=== PATIENT | female | born 1990 | race Caucasian/White ===

== ENCOUNTER 2016-09-01 20:57 | Inpatient (IN) | payer OTHER ==
[2016-09-01] MEDS ORDERED: LIDOCAINE HCL 50 ML VIAL PERI PRN (21:42)
[2016-09-01] MEDS ORDERED: RINGER'S SOLUTION,LACTATED 1,000 ML IV ONE ×2 (21:42→22:16)
[2016-09-01] MEDS ORDERED: OXYTOCIN/DEXTROSE 5%-WATER 30 UNITS/500 ML BAG IV ONE (21:42)
[2016-09-01 22:00] LABS: Hematocrit 27.8 % (37.0-47.0); Hemoglobin 9.5 gm/dL (12.5-16.0); Mean Cell Volume 85.8 fl (78-100); Mean Corpuscular Hemoglobin 29.3 pg (27-31); Mean Corpuscular Hgb Conc 34.2 g/dl (32-36); Mean Platelet Volume 9.4 fl (6.0-9.5); Neutrophil # 18.3 K/mm3 (1.3-6.0); Neutrophil % 83.3 % (42-75.0); Platelet Count 213 K/mm3 (150-450); Red Blood Count 3.24 M/mm3 (4.2-5.4); Red Cell Distribution Width 12.5 % (11.5-14.0); White Blood Count 21.9 K/mm3 (4.0-10.5)
--- NOTE | 2016-09-01 23:09 | PN ---
Subjective - Date and Time Seen Date: 09/01/16 Subjective Narrative: labor note: 26 yo, at 37.6 weeks, admitted with SROM in labor. has been ruptured for about 18 hours since 8 am this morning. dilated to 3 cm, 50% and -2 at admission. GBS negative. Patient has persistent tachycardia in the 120s. Her white count was significantly elevated to 21.9 with 90% of granulocyte and absolute neutrophils count of 18.3. heart rate was initially in the 150s and now in the 135s with minimal variability and some accels. All of the above suggested that she is having an infection and likely developing chorioamnionitis. Plan: will cover for possible chorioamnionitis with gentamicin (5mg/kg iv q24 h ) and clindamycin (900 mg iv q8h). pitocin augmentation as needed. Nelson Jaimes MD Objective - Vitals Vitals: Last Vital Signs Temp 36.2 C L 01/23/16 15:27 Pulse Resp BP 133/74 01/23/16 15:27 Pulse Ox - Abnormal Lab Findings Abnormal Lab Findings: Abnormal Lab Results 09/01/16 Range/Units 22:00 WBC 21.9 H (4.0-10.5) K/mm3 RBC 3.24 L (4.2-5.4) M/mm3 Hgb 9.5 L (12.5-16.0) gm/dL Hct 27.8 L (37.0-47.0) % Immature Gran % (Auto) 0.90 H (0.001-0.429) % Immature Gran # (Auto) 0.20 H (0.000-0.0310) K/mm3 Neutrophils % 83.3 H (42-75.0) % Lymphocytes % 10.1 L (20-51) % Neutrophils # 18.3 H (1.3-6.0) K/mm3 Monocytes # 1.1 H (0.0-1.0) k/mm3
[2016-09-01] MEDS: RINGER'S SOLUTION,LACTATED 1,000 ML IV PRN (23:11)
[2016-09-02] MEDS: CLINDAMYCIN PHOSPHATE 900 MG in DEXTROSE 5 % IN WATER 100 ML IV SCH ×6 (00:13→16:33)
[2016-09-02] MEDS ORDERED: GENTAMICIN SULFATE 400 MG in DEXTROSE 5 % IN WATER 100 ML IV SCH ×2 (01:00)
[2016-09-02] MEDS ORDERED: NALOXONE HCL 1 MG/1 ML SYRG IV PRN ×2 (01:32→02:31)
[2016-09-02] MEDS ORDERED: ONDANSETRON HCL/PF 2 MG/ML VIAL IV PRN ×2 (01:32→02:31)
[2016-09-02] MEDS ORDERED: BUPIVACAINE HCL/0.9 % NACL/PF 250 ML EP PRN ×2 (01:32→02:31)
[2016-09-02] MEDS ORDERED: fentaNYL CITRATE/PF 50 MCG/ML AMPUL IT SCH ×2 (01:45→02:45)
--- NOTE | 2016-09-02 02:01 | OR ---
Anesthesia Pre Procedure Eval Date of Service: 09/02/16 Pre Procedure Evaluation: Last Vital Signs Temp 36.2 C L 01/23/16 15:27 Pulse Resp BP 133/74 01/23/16 15:27 Pulse Ox Anesthesia Pre Procedure Evaluation Heart Rate: 100 Blood Pressure: 114/64 Termperature: 99 Respiratory Rate: 18 SaO2: 36.9 DATE: 09/02/2016 TIME: 2 AM INDICATIONS: Active labor, labor pain PAST MEDICAL HISTORY: Multiple patient in active labor EXAM: Heart regular; lungs clear ASSESSMENT OF MEDICAL STATUS: Appropriate candidate for labor analgesia PLANNED PROCEDURE: Combination spinal epidural for labor analgesia Home Medications: HOME MEDICATIONS Vit No.78/Iron/FA [Prenatabs FA Tablet] 1 each PO DAILY 01/23/16 [Last Taken Unknown]
--- NOTE | 2016-09-02 02:28 | OR ---
Anesthesia Procedure Note - Anesthesia Procedure Note Date of Service: 09/02/16 Narrative: Vital Signs - Last Taken Temp 36.2 C L 01/23/16 15:27 Pulse Resp BP 133/74 01/23/16 15:27 Pulse Ox 09/02/16 02:23 ANESTHESIA PROCEDURE NOTE Date of Procedure: 09/02/2016 Time of procedure: 2:00 AM. Performed by: SHEN Sainz CRNA, MSN Tube Filler: Radha Arroyo RN. Preprocedure diagnosis: Active labor, labor pain. Post procedure diagnosis: Same. Procedure:Epidural for labor analgesia at L4 5. Indications: Labor pain. Findings: See below. Details of the procedure: The patient was placed on the side of the bed in sitting positionand prepped with DuraPrep then draped in a sterile fashion. Lidocaine 1% was infiltrated to the skin and subcutaneous tissues at the level of the L4 5 interspace. An 18-gauge Touhy needle was used to approach the epidural space with loss of resistance technique. Once loss of resistance was achieved a 24-gauge Pencan needle was passed through the epidural needle and CSF was contacted. After CSF returned fentanyl 20 mcg of fentanyl was injected in the spinal needle was removed the epidural catheter was then threaded approximately 4 cm in the epidural needle was removed. The catheter was taped in place and after careful aspiration 3 mL of 1.5% lidocaine with 1-200,000 epinephrine was injected without change in maternal heart rate or sensorium. . EBL: Minimal. Fluids: N/A. Specimen: N/A. Post procedure condition: The patient tolerated the procedure well with good relief. No complications were noted. Thank you for this consultation. Stanford Larios CRNA, SHEN, MSN
[2016-09-02 08:56] LABS: Hematocrit 27.4 % (37.0-47.0); Hemoglobin 9.2 gm/dL (12.5-16.0); Mean Corpuscular Hemoglobin 29.2 pg (27-31); Mean Corpuscular Hgb Conc 33.6 g/dl (32-36); Mean Platelet Volume 9.7 fl (6.0-9.5); Neutrophil % 84.9 % (42-75.0); Platelet Count 207 K/mm3 (150-450); Red Blood Count 3.15 M/mm3 (4.2-5.4); Red Cell Distribution Width 12.9 % (11.5-14.0); White Blood Count 22.4 K/mm3 (4.0-10.5)
[2016-09-02 09:10] LABS: Albumin * 2.4 gm/dl (3.4-5.0); Anion Gap 11.1 mmol/L (6.8-13.8); BUN/Creatinine Ratio 6.3 (9.0-21.6); Bilirubin, Total 0.4 mg/dL (0.0-1.1); Ca. Corrected For Albumin 9.2 mg/dL (8.4-10.2); Calcium * 8.2 mg/dL (7.9-10.9); Carbon Dioxide 24.3 mmol/L (24-32.6); Potassium 3.4 mmol/L (3.4-4.6)
--- NOTE | 2016-09-02 09:14 | PN ---
Progess Note - Interim Narrative: 09/02/16 09:12 Subjective-on the right side and complains of a window pain Objective- SVE- deferred FHTs- 145, moderate variability, positive accelerations, no decelerations [place]- maybe every 2 minutes Assessment and plan- Labor-augmentation Suspected chorio- continue antibiotics GBS status-negative Continue current plan of care.
[2016-09-02] MEDS ORDERED: AMPICILLIN SODIUM 2,000 MG in NORMAL SALINE 100 ML IV SCH (10:00)
[2016-09-02] MEDS ORDERED: ACETAMINOPHEN 500 MG TABLET PO PRN (10:02)
[2016-09-02] MEDS: RINGER'S SOLUTION,LACTATED 1,000 ML IV PRN (10:12)
--- NOTE | 2016-09-02 12:37 | OR ---
Operative Report - Dictated Report Narrative: Spontaneous Vaginal Delivery Viable female with APGARS of 8 at 1 and 8 at 5 minutes. Presentation was direct OA. The right anterior shoulder delivered with gentle downward traction followed by the posterior shoulder and the remainder of the baby. Spontaneous cry was noted and was placed on the maternal abdomen. The cord was then clamped and cut after approximately 60 seconds. Delivery was 1206. Weight: 3498 g or 7 pounds 11 point Placenta was delivered spontaneously and intact. Second-degree midline laceration was noted and repaired with 2-0 Vicryl. Estimated blood loss: 300 ml Mother and baby tolerated delivery well. History for Definition: * The number of deliveries resulting in a live the patient experienced prior to current hospitalization * The previous delivery of live twins or any live multiple gestation is considered one live event. *If primagravida or nulliparous is documented select zero for the number of previous live births. Live Events: 1
[2016-09-02] MEDS ORDERED: BISACODYL 10 MG SUPP.RECT RC PRN (13:43)
[2016-09-02] MEDS ORDERED: GLYCERIN/WITCH HAZEL LEAF 40 APPL BOX TP PRN (13:43)
[2016-09-02] MEDS ORDERED: IBUPROFEN 800 MG TABLET PO PRN (13:43)
[2016-09-02] MEDS ORDERED: OXYTOCIN/DEXTROSE 5%-WATER 30 UNITS/500 ML BAG IV ONE (13:43)
[2016-09-02] MEDS ORDERED: HYDROCORTISONE 30 APPL TUBE TP PRN (13:43)
[2016-09-02] MEDS ORDERED: oxyCODONE HCL/ACETAMINOPHEN 1 TAB TABLET PO PRN ×2 (13:43)
[2016-09-02] MEDS ORDERED: SENNOSIDES 8.6 MG TABLET PO PRN (13:43)
[2016-09-02] MEDS ORDERED: BENZOCAINE/MENTHOL 81 SPRAY CAN TP PRN (13:43)
[2016-09-02] MEDS: AMPICILLIN SODIUM 2,000 MG in NORMAL SALINE 100 ML IV SCH ×2 (17:27→21:04)
[2016-09-02] MEDS: DOCUSATE SODIUM 100 MG CAPSULE PO SCH (21:05)
[2016-09-03] MEDS ORDERED: GENTAMICIN SULFATE 400 MG in DEXTROSE 5 % IN WATER 100 ML IV SCH ×2 (01:00)
[2016-09-03] MEDS: CLINDAMYCIN PHOSPHATE 900 MG in DEXTROSE 5 % IN WATER 100 ML IV SCH ×2 (01:27)
[2016-09-03] MEDS: AMPICILLIN SODIUM 2,000 MG in NORMAL SALINE 100 ML IV SCH (04:24)
[2016-09-03] MEDS: DOCUSATE SODIUM 100 MG CAPSULE PO SCH ×2 (08:43→20:34)
[2016-09-03] MEDS: ENOXAPARIN SODIUM 40 MG/0.4 ML SYRG SC SCH (08:43)
[2016-09-03] MEDS ORDERED: PRENATAL VITS96/IRON FUM/FOLIC 1 TAB TABLET PO SCH (09:00)
--- NOTE | 2016-09-03 09:11 | PN ---
Progess Note - Interim Narrative: 09/03/16 09:10 progress note Subjective: The patient is doing well. She is ambulating, voiding, tolerating by mouth. She has minimal pain and moderate lochia. Objective: General: No acute distress Abdomen: Soft, nontender, fundus is firm just below the umbilicus Extremities: minimal edema, nontender to palpation Assessment and plan: day 1 Feeding: Breast Pain: Controlled with by mouth medication control: Mirena Chorioamnionitis: Afebrile pain 24 hours will discontinue antibiotics heterozygous for factor V Leiden with family history of blood clots: Daily Lovenox Routine care.
[2016-09-04 07:23] VITALS: BP 116/76
[2016-09-04] MEDS: DOCUSATE SODIUM 100 MG CAPSULE PO SCH (08:22)
[2016-09-04] MEDS: ENOXAPARIN SODIUM 40 MG/0.4 ML SYRG SC SCH (08:22)
--- NOTE | 2016-09-04 09:12 | PN ---
Progess Note - Interim Narrative: 09/04/16 09:10 progress note Subjective: The patient is doing well. She is ambulating, voiding, tolerating by mouth. She has minimal pain and moderate lochia. Objective: General: No acute distress Abdomen: Soft, nontender, fundus is firm just below the umbilicus Extremities: minimal edema, nontender to palpation Assessment and plan: day 2 Feeding: Bottle Pain: Controlled with by mouth medication control: Mirena, due to chorioamnionitis patient can receive me Mirena at 3 months . Plan to do Depo-Provera until she receives the Mirena. Factor V Leiden heterozygous was family history of VTE and current tobacco user (no smoking for 2 days): Recommend prophylactic anticoagulation for 6 weeks . Routine care.
== END 2016-09-04 12:05 | disposition home or self-care (01) | DRG 775 ==
LOC: OBCLINIC 20:57 → OB 21:16
PROVIDERS: ADMIT Obstetrics & Gynecology; ATTEND Obstetrics & Gynecology
PROC: 10E0XZZ Delivery of Products of Conception, External Approach (ICD-10-PCS; principal; 2016-09-02)
PROC: 0KQM0ZZ Repair Perineum Muscle, Open Approach (ICD-10-PCS; 2016-09-02)
PROC: 4A1HXCZ Monitoring of Products of Conception, Cardiac Rate, External Approach (ICD-10-PCS; 2016-09-02)
PROC: 00HU33Z Insertion of Infusion Device into Spinal Canal, Percutaneous Approach (ICD-10-PCS; 2016-09-02)
DX: O99.12 Other diseases of the blood and blood-forming organs and certain disorders involving the immune mechanism complicating childbirth (principal); O41.1230 Chorioamnionitis, third trimester, not applicable or unspecified; D68.51 Activated protein C resistance; O70.1 Second degree perineal laceration during delivery; O42.92 Full-term premature rupture of membranes, unspecified as to length of time between rupture and onset of labor; O99.334 Smoking (tobacco) complicating childbirth; F17.210 Nicotine dependence, cigarettes, uncomplicated; Z3A.38 38 weeks gestation of pregnancy; Z37.0 Single live birth